=== PATIENT | male | born 1940 | race Caucasian/White ===

== ENCOUNTER 2018-06-04 09:22 | Emergency (ER) | payer MEDICARE ==
[~2018-06-04 09:22] MED LIST: Gadobenate Dimeglumine 529 MG/1 ML (20ML VIAL) ONE
[2018-06-04] MEDS ORDERED: Ketorolac Tromethamine 30 MG/ML VIAL ONE (09:59)
[2018-06-04 10:08] LABS: #Basophils 0.1 thou/uL (0.0-0.2); #Eosinphils 0.1 thou/uL (0.0-0.7); #Lymphocytes 1.1 thou/uL (1.20-3.40); #Monocytes 0.7 thou/uL (0.11-0.59); %Eosinophils 1.6 % (0.0-10.0); %Lymphocytes 13.3 % (21.0-51.0); %Monocytes 8.4 % (0.0-10.0); %Neutrophils 75.7 % (42.0-75.0); Hemoglobin 14.8 g/dL (14.0-18.0); Mean Corpuscular Volume 88.3 fL (78.0-98.0); Mean Platelet Volume 6.3 fL (7.4-10.4); Platelet Count 276 thou/uL (130-400); RBC Distribution Width 12.2 % (11.5-14.5); Red Blood Cell (RBC) Count 4.94 mill/uL (4.70-6.10); White Blood Cell (WBC) Count 7.9 thou/uL (4.8-10.8)
[2018-06-04 10:20] LABS: ALT (SGPT) 16 U/L (8-55); AST (SGOT) 27 U/L (5-34); Albumin 4.5 g/dL (3.4-4.8); Alkaline Phosphatase 64 U/L (40-150); Anion Gap 18 mmol/L (10-20); BUN (Urea Nitrogen) 29 mg/dL (8.4-25.7); Bilirubin, Total 1.3 mg/dL (0.2-1.2); CRP (Inflammatory) Less than 0.50 mg/dL (= or < 0.5); Calc. Creatinine Clearance 0 mL/min (70-130); Carbon Dioxide 25 mmol/L (23-31); Chloride 96 mmol/L (98-107); Estimated GFR-MDRD 51; Glucose 282 mg/dL (83-110); Potassium 4.6 mmol/L (3.5-5.1); Protein, Total 7.5 g/dL (5.8-8.1); Sodium 134 mmol/L (136-145)
--- NOTE | 2018-06-04 14:06 | MRI ---
MRI OF THE LUMBAR SPINE WITHOUT AND WITH CONTRAST: COMPARISON: 11/22/14. HISTORY: Low back pain with left-sided sciatica. History of fall 2 weeks ago. TECHNIQUE: Multiplanar, multisequence MR images were obtained of the lumbar spine without and with IV contrast. FINDINGS: There is decreased height of the L5 vertebral body with approximately 30% height loss. The L5-S1 int ervertebral disk is significantly decreased in height. Postsurgical changes are seen in the lower josiah mbosacral spine. The patient is status post fusion of L4 through S1 with bilateral pedicle screws. Laminectomies have been performed at L4 and L5. The conus medullaris terminates normally at L1. The prevertebral soft tissues are unremarkable. No abnormal enhancement is seen on this examination. A small amount of edema is seen in the paraspinal soft tissues, posterior to L5 and S1. T12-L1: Unremarkable. L1-2: A small disk-osteophyte complex is seen. Mild bilateral posterior facet arthrosis. Mild cent ral canal stenosis. Mild [id number] neural foraminal stenosis. L2-3: A small disk-osteophyte complex is seen. Moderate bilateral posterior facet arthrosis. Mild central canal stenosis. Mild bilateral neural foraminal stenosis. L3-4: A moderate disk-osteophyte complex is seen. Severe bilateral posterior facet arthrosis. Mode rate central canal stenosis. Moderate right and severe left neural foraminal stenosis. L4-5: No significant bulge or protrusion. Moderate bilateral posterior facet arthrosis. No central canal stenosis. Mild bilateral neural foraminal stenosis. L5-S1: A large disk-osteophyte complex is seen. Evaluation is limited secondary to artifact from th e patient's pedicle screws. Moderate bilateral posterior facet arthrosis. No central canal stenosis . The right neural foramen is difficult to visualize. Moderate to severe left neural foraminal sten osis. IMPRESSION: Postsurgical changes and degenerative changes of the lumbar spine as above. POS: [facility]
== END 2018-06-04 12:43 | disposition home or self-care (01) ==
LOC: SCSER 09:22
DX: M54.16 Radiculopathy, lumbar region (principal); M10.9 Gout, unspecified; E11.9 Type 2 diabetes mellitus without complications; I10 Essential (primary) hypertension; Z79.899 Other long term (current) drug therapy; Z79.84 Long term (current) use of oral hypoglycemic drugs; Z79.82 Long term (current) use of aspirin
CPT/HCPCS: 36415; 72158; 80053; 85025; 85652; 86140; 96372; A9579; J1885

== ENCOUNTER 2018-06-21 13:29 | Outpatient (CLI) | payer MEDICARE ==
--- NOTE | 2018-06-21 15:38 | RAD ---
LUMBAR SPINE THREE VIEWS: 06/21/18 HISTORY: 77-year-old male with history of lumbar radiculopathy. COMPARISON: 03/05/15. Extensive lumbar spondylosis changes are noted. Pedicle screw changes are noted at L4, L5 and S1. Exa m includes upright flexion and extension views. No abnormal translation between flexion and extension . IMPRESSION: Extensive spondylosis. Pedicle screw placement changes at L 4, L5, and S1. No evidence for abnormal t ranslation between flexion and extension. POS: [facility]
--- NOTE | 2018-06-21 16:00 | CT ---
CT LUMBAR SPINE WITHOUT CONTRAST: Date: 06/21/18 Multiple axial tomograms obtained through the lumbar spine without IV enhancement. HISTORY: Lumbar radiculopathy. Correlation made to MRI lumbar spine dated 11/22/14. That exam revealed L5 fracture with abnormal sig nal in the L5 vertebra, as well as the L5-S1 disc and superior portion of S1 suggesting inflammation. FINDINGS: Today's CT shows pedicle screws in place at L4, L5, and S1. Loss of height of the L5 vertebra is note d with loss of disc space at L5-S1. There are large anterior and lateral osteophytes throughout the l umbar spine. Posterior alignment is preserved. At L1-2, disc bulge abuts the thecal sac. Facet hypertrophy is prominent. Mild central canal stenosis . At L2-3, diffuse disc bulge combined with prominent facet hypertrophy results in mild to moderate janet tral canal stenosis. At L3-4, broad based disc bulge combined with very pronounced facet and ligamentous hypertrophy resul ts in moderate to severe central canal stenosis. There is disc density projecting to the left encroac dionicio in the left foramina and laterally on the left at this level suggesting asymmetric disc protrusi on. Pedicle screws at L4 appear adequately positioned. At L4-5, posterior laminectomy change. Prominent facet hypertrophy. No significant central canal sten osis. Bilateral foraminal stenosis secondary to hypertrophic change. Pedicle screws at L5 are adequately positioned. Posterior laminectomy change. Osteophytes project posteriorly at the L5-S1 disc. There is loss of disc space at L5-S1. The posterio r osteophytes impinge on the cord anteriorly and to the left of midline. This large osteophyte comple x measures approximately 8 mm AP dimension in the axial plane and probably displaces the traversing l eft S1 nerve root. Bilateral foraminal stenosis at this level, more severe on the right due to the hy pertrophic change. Pedicle screws at S1 appear adequately positioned. IMPRESSION: 1. There are postoperative and degenerative changes of the lumbar spine. Large osteophyte projecting posteriorly at the L5-S1 disc level impinges on the thecal sac. Bilateral foraminal stenosis at this level, more severe on the right, is noted. 2. Disc bulge and central canal stenosis at other lumbar levels as described above. POS: [facility]
== END 2018-06-21 13:30 | disposition home or self-care (01) ==
LOC: CT 13:29
PROVIDERS: ATTEND Surgery
DX: M47.26 Other spondylosis with radiculopathy, lumbar region (principal); M48.061 Spinal stenosis, lumbar region without neurogenic claudication; M99.83 Other biomechanical lesions of lumbar region; M51.16 Intervertebral disc disorders with radiculopathy, lumbar region; Z98.890 Other specified postprocedural states
CPT/HCPCS: 72100; 72131

== ENCOUNTER 2024-02-21 15:26 | Inpatient (IN) | payer MEDICARE ==
[2024-02-21] MEDS ORDERED: Pantoprazole 40 MG VIAL ONE (16:02)
[2024-02-21 16:50] LABS: #Basophils 0.05 10x3/uL (0.0-0.2); %Basophils 0.7 % (0.0-1.0); %Eosinophils 2.8 % (0.0-10.0); %Lymphocytes 17.4 % (21.0-51.0); %Monocytes 12.4 % (0.0-10.0); %Neutrophils 66.4 % (42.0-75.0); Hematocrit 26.2 % (42.0-52.0); Hemoglobin 7.9 g/dL (14.0-18.0); Mean Corpuscular HGB CONC 30.2 g/dL (32.0-36.0); Mean Corpuscular Hemoglobin 31.6 pg (27.0-31.0); Mean Corpuscular Volume 104.8 fL (78.0-98.0); Platelet Count 241 10x3/uL (130-400); RBC Distribution Width 16.3 % (11.5-14.5)
[2024-02-21 17:13] LABS: Troponin I 0.021 ng/mL (< 0.028)
[2024-02-21 17:16] LABS: ALT (SGPT) 10 U/L (8-55); AST (SGOT) 13 U/L (5-34); Albumin 2.8 g/dL (3.4-4.8); Alkaline Phosphatase 159 U/L (40-110); Anion Gap 13 mmol/L (10-20); BUN (Urea Nitrogen) 51 mg/dL (8.4-25.7); Bilirubin, Total 0.4 mg/dL (0.2-1.2); Calc. Creatinine Clearance 0 mL/min (70-130); Calcium 8.8 mg/dL (7.8-10.44); Carbon Dioxide 24 mmol/L (23-31); Chloride 107 mmol/L (98-107); Estimated GFR 83; Globulin 3.6 g/dL (2.4-3.5); Glucose 113 mg/dL (83-110); Lipase 28 U/L (8-78); Protein, Total 6.4 g/dL (5.8-8.1); Sodium 140 mmol/L (136-145)
[2024-02-21 17:52] LABS: Bacteria/HPF 2+ HPF (None Seen); Bilirubin Negative (Negative); Blood, Urine Trace (Negative); CAUTI Indications for Culture Pelvic or flank pain; Clarity Turbid (Clear); Glucose, Urine (Dipstick) Normal (Negative); Ketone, Urine Negative (Negative); Leukocyte 500 Leu/uL (Negative); Nitrite Negative (Negative); Protein, Urine (Dipstick) 30 mg/dL (Neg-Trace); Specific Gravity, Urine 1.018 (1.002-1.036); Squamous Epithelial 0-3 HPF (0-3); Urobilinogen Normal mg/dL (Less than 2); WBC/HPF Greater than 50 HPF (0-3); pH, Urine 5.5 (5.0-9.0)
[2024-02-21 18:06] LABS: Urine Culture Reflex Yes Yes
[2024-02-21] MEDS ORDERED: cefTRIAXone (ROCEPHIN) 1 GM VIAL ONE (18:22)
[2024-02-21] MEDS ORDERED: Sodium Chloride 0.9% 100 ML ONE (18:22)
[2024-02-21] MEDS ORDERED: Acetaminophen 325 MG TAB PO PRN (18:57)
[2024-02-21] MEDS ORDERED: Ondansetron ODT 4 MG TAB PO PRN (18:57)
[2024-02-21] MEDS ORDERED: Dextrose 5% in Water 1,000 ML IV PRN (18:57)
[2024-02-21] MEDS ORDERED: Dextrose 50% Abboject 50 ML SYRINGE SLOW IVP PRN (18:57)
[2024-02-21] MEDS ORDERED: HumaLOG 300 UNITS/3 ML VIAL SC PRN (18:57)
[2024-02-21] MEDS ORDERED: Ondansetron PF 4 MG/2 ML Vial IVP PRN (18:57)
[2024-02-21] MEDS ORDERED: Glucagon 1 MG/ML KIT IM PRN (18:57)
[2024-02-21 18:58] LABS: Iron 25 ug/dL (65-175); Iron Binding Capacity, Total 330 mcg/dL (261-462); Magnesium 1.7 mg/dL (1.6-2.6)
[2024-02-21 19:01] LABS: INR-International Normal Ratio 1.1; Prothrombin Time 13.9 sec (12.0-14.7)
[2024-02-21 19:02] LABS: PTT 31.1 sec (22.9-36.1)
[2024-02-21 23:33] VITALS: BMI 27.3
[2024-02-22] MEDS: Magnesium 2 GM/50 ML(in water) 2 GM in Premix 1 BAG IVPB SCH ×2 (00:17→01:28)
[2024-02-22] MEDS: Pantoprazole 40 MG VIAL IVP SCH (00:18)
[2024-02-22 04:40] LABS: #Basophils 0.06 10x3/uL (0.0-0.2); %Basophils 1.1 % (0.0-1.0); %Eosinophils 4.6 % (0.0-10.0); %Lymphocytes 16.1 % (21.0-51.0); %Neutrophils 63.8 % (42.0-75.0); Hemoglobin 8.6 g/dL (14.0-18.0); Mean Corpuscular HGB CONC 30.7 g/dL (32.0-36.0); Mean Corpuscular Hemoglobin 31.2 pg (27.0-31.0); Mean Corpuscular Volume 101.4 fL (78.0-98.0); Mean Platelet Volume 9.2 fL (7.4-10.4); Platelet Count 236 10x3/uL (130-400); RBC Distribution Width 16.6 % (11.5-14.5); Red Blood Cell (RBC) Count 2.76 mill/uL (4.70-6.10)
[2024-02-22 05:02] LABS: Anion Gap 12 mmol/L (10-20); BUN (Urea Nitrogen) 42 mg/dL (8.4-25.7); Calc. Creatinine Clearance 82 mL/min (70-130); Calcium 8.7 mg/dL (7.8-10.44); Carbon Dioxide 25 mmol/L (23-31); Chloride 106 mmol/L (98-107); Estimated GFR 87; Glucose 97 mg/dL (83-110); Potassium 3.4 mmol/L (3.5-5.1); Sodium 140 mmol/L (136-145)
[2024-02-22] MEDS ORDERED: Electrolyte Replacement Protocol 1 EACH FS SCH (06:00)
[2024-02-22] MEDS: Potassium Chloride 20 MEQ in Premix 1 BAG IVPB SCH (06:41)
[2024-02-22 06:57] LABS: Magnesium 2.2 mg/dL (1.6-2.6)
[2024-02-22] MEDS: Allopurinol 300 MG TAB PO SCH (09:15)
[2024-02-22] MEDS: Losartan 25 MG TAB PO SCH (09:16)
[2024-02-22] MEDS: Amlodipine 5 MG TAB PO SCH (09:16)
[2024-02-22 14:46] LABS: Potassium 4.2 mmol/L (3.5-5.1)
[2024-02-22] MEDS: HumaLOG 300 UNITS/3 ML VIAL SC PRN (18:50)
[2024-02-22] MEDS: cefTRIAXone\\ROCEPHIN 1 GM in Sodium Chloride 0.9% 100 ML IVPB SCH (18:54)
[2024-02-22] MEDS: Melatonin 3 MG TAB PO SCH (20:28)
[2024-02-22] MEDS: hydrALAZINE 20 MG/ML VIAL SLOW IVP PRN (20:28)
[2024-02-23 05:00] LABS: #Basophils 0.07 10x3/uL (0.0-0.2); %Eosinophils 4.2 % (0.0-10.0); %Lymphocytes 10.1 % (21.0-51.0); %Neutrophils 72.6 % (42.0-75.0); Hematocrit 29.4 % (42.0-52.0); Hemoglobin 9.1 g/dL (14.0-18.0); Mean Corpuscular Hemoglobin 30.5 pg (27.0-31.0); Mean Corpuscular Volume 98.7 fL (78.0-98.0); Mean Platelet Volume 9.5 fL (7.4-10.4); Platelet Count 259 10x3/uL (130-400); RBC Distribution Width 16.4 % (11.5-14.5); Red Blood Cell (RBC) Count 2.98 mill/uL (4.70-6.10)
[2024-02-23 05:22] LABS: Anion Gap 17 mmol/L (10-20); BUN (Urea Nitrogen) 30 mg/dL (8.4-25.7); Calc. Creatinine Clearance 78 mL/min (70-130); Carbon Dioxide 22 mmol/L (23-31); Chloride 112 mmol/L (98-107); Estimated GFR 86; Glucose 90 mg/dL (83-110); Potassium 3.9 mmol/L (3.5-5.1); Sodium 147 mmol/L (136-145)
[2024-02-23] MEDS ORDERED: PROPOFOL 20 ML ONE (14:28)
[2024-02-23] MEDS ORDERED: Lidocaine 1% PF 5 ML VIAL ONE (14:28)
[2024-02-23] MEDS: GoLYTELY 4,000 ml Bottle PO SCH (18:38)
[2024-02-24] MEDS: Furosemide 20 MG (2 mL) VIAL SLOW IVP SCH (03:22)
[2024-02-24 04:27] LABS: #Basophils 0.05 10x3/uL (0.0-0.2); %Basophils 0.4 % (0.0-1.0); %Eosinophils 0.3 % (0.0-10.0); %Lymphocytes 4.1 % (21.0-51.0); %Monocytes 7.5 % (0.0-10.0); %Neutrophils 87.3 % (42.0-75.0); Hematocrit 30.4 % (42.0-52.0); Hemoglobin 9.6 g/dL (14.0-18.0); Mean Corpuscular HGB CONC 31.6 g/dL (32.0-36.0); Mean Corpuscular Hemoglobin 31.9 pg (27.0-31.0); Mean Platelet Volume 9.1 fL (7.4-10.4); Platelet Count 256 10x3/uL (130-400); RBC Distribution Width 15.9 % (11.5-14.5); Red Blood Cell (RBC) Count 3.01 mill/uL (4.70-6.10)
[2024-02-24 05:15] LABS: Anion Gap 14 mmol/L (10-20); BUN (Urea Nitrogen) 20 mg/dL (8.4-25.7); Calc. Creatinine Clearance 92 mL/min (70-130); Calcium 8.9 mg/dL (7.8-10.44); Carbon Dioxide 25 mmol/L (23-31); Chloride 108 mmol/L (98-107); Estimated GFR 90; Glucose 105 mg/dL (83-110); Potassium 3.7 mmol/L (3.5-5.1); Sodium 143 mmol/L (136-145)
[2024-02-24] MEDS ORDERED: PROPOFOL 0 ML ONE ×2 (07:24→07:31)
[2024-02-24] MEDS ORDERED: CEFEPIME IVPB PRN (10:29)
[2024-02-24] MEDS: Vancomycin 1 GM in Premix 1 BAG IVPB SCH (12:44)
[2024-02-24] MEDS: Vancomycin (BATCH) 2 GM in Premix 1 BAG IVPB SCH (13:36)
[2024-02-24] MEDS: Cefepime 2 GM in Sodium Chloride 0.9% 100 ML IVPB SCH (13:36)
[2024-02-24] MEDS ORDERED: Vancomycin (BATCH) 1.25 GM in Premix 1 BAG IVPB SCH (21:00)
[2024-02-25] MEDS: Vancomycin (BATCH) 1.25 GM in Premix 1 BAG IVPB SCH (00:33)
[2024-02-25 05:34] LABS: Anion Gap 17 mmol/L (10-20); BUN (Urea Nitrogen) 17 mg/dL (8.4-25.7); Calc. Creatinine Clearance 82 mL/min (70-130); Calcium 8.5 mg/dL (7.8-10.44); Carbon Dioxide 23 mmol/L (23-31); Chloride 108 mmol/L (98-107); Estimated GFR 87; Glucose 90 mg/dL (83-110); Potassium 3.7 mmol/L (3.5-5.1); Sodium 144 mmol/L (136-145)
[2024-02-25 05:37] LABS: Vancomycin, Random 28.5 ug/mL (See Comment)
[2024-02-25 05:55] LABS: #Basophils 0.06 10x3/uL (0.0-0.2); %Basophils 0.8 % (0.0-1.0); %Eosinophils 3.7 % (0.0-10.0); %Lymphocytes 10.3 % (21.0-51.0); %Monocytes 12.8 % (0.0-10.0); %Neutrophils 72.1 % (42.0-75.0); Hematocrit 28.2 % (42.0-52.0); Hemoglobin 8.6 g/dL (14.0-18.0); Mean Corpuscular HGB CONC 30.5 g/dL (32.0-36.0); Mean Corpuscular Hemoglobin 31.5 pg (27.0-31.0); Mean Corpuscular Volume 103.3 fL (78.0-98.0); Mean Platelet Volume 9.4 fL (7.4-10.4); Platelet Count 204 10x3/uL (130-400); RBC Distribution Width 15.8 % (11.5-14.5); Red Blood Cell (RBC) Count 2.73 mill/uL (4.70-6.10)
[2024-02-25] MEDS: Furosemide 40 MG (4 mL) VIAL SLOW IVP SCH (17:29)
[2024-02-25] MEDS: Vancomycin HCl 750 MG in Sodium Chloride 0.9% 250 ML 250 ML IVPB SCH (22:10)
[2024-02-26 04:50] LABS: #Basophils 0.05 10x3/uL (0.0-0.2); %Basophils 0.8 % (0.0-1.0); %Eosinophils 6.3 % (0.0-10.0); %Monocytes 12.9 % (0.0-10.0); %Neutrophils 65.7 % (42.0-75.0); Hemoglobin 8.1 g/dL (14.0-18.0); Mean Corpuscular Hemoglobin 31.2 pg (27.0-31.0); Mean Corpuscular Volume 103.8 fL (78.0-98.0); Mean Platelet Volume 9.7 fL (7.4-10.4); Platelet Count 203 10x3/uL (130-400); RBC Distribution Width 15.2 % (11.5-14.5)
[2024-02-26 05:12] LABS: Vancomycin, Random 29.3 ug/mL (See Comment)
[2024-02-26 05:16] LABS: Anion Gap 13 mmol/L (10-20); BUN (Urea Nitrogen) 18 mg/dL (8.4-25.7); Calc. Creatinine Clearance 76 mL/min (70-130); Calcium 8.7 mg/dL (7.8-10.44); Carbon Dioxide 27 mmol/L (23-31); Chloride 106 mmol/L (98-107); Estimated GFR 85; Glucose 98 mg/dL (83-110); Potassium 3.6 mmol/L (3.5-5.1); Sodium 142 mmol/L (136-145)
[2024-02-26] MEDS: Furosemide 40 MG (4 mL) VIAL SLOW IVP SCH (11:10)
[2024-02-26] MEDS: GoLYTELY 4,000 ml Bottle PO SCH (16:15)
[2024-02-26] MEDS: Cefepime 1 GM in Sodium Chloride 0.9% 100 ML IVPB SCH (23:24)
[2024-02-27 08:40] LABS: #Basophils 0.05 10x3/uL (0.0-0.2); %Basophils 0.8 % (0.0-1.0); %Eosinophils 6.3 % (0.0-10.0); %Lymphocytes 12.5 % (21.0-51.0); %Monocytes 11.5 % (0.0-10.0); %Neutrophils 68.7 % (42.0-75.0); Hematocrit 29.1 % (42.0-52.0); Hemoglobin 8.9 g/dL (14.0-18.0); Mean Corpuscular HGB CONC 30.6 g/dL (32.0-36.0); Mean Corpuscular Hemoglobin 30.5 pg (27.0-31.0); Mean Corpuscular Volume 99.7 fL (78.0-98.0); Platelet Count 197 10x3/uL (130-400); RBC Distribution Width 14.6 % (11.5-14.5); Red Blood Cell (RBC) Count 2.92 mill/uL (4.70-6.10)
[2024-02-27] MEDS ORDERED: PROPOFOL 40 ML ONE (09:22)
[2024-02-27 09:28] LABS: Anion Gap 16 mmol/L (10-20); BUN (Urea Nitrogen) 18 mg/dL (8.4-25.7); Calc. Creatinine Clearance 78 mL/min (70-130); Calcium 8.7 mg/dL (7.8-10.44); Carbon Dioxide 23 mmol/L (23-31); Chloride 105 mmol/L (98-107); Estimated GFR 86; Glucose 94 mg/dL (83-110); Potassium 3.7 mmol/L (3.5-5.1); Sodium 140 mmol/L (136-145)
[2024-02-27] MEDS ORDERED: Etomidate 40 MG (20 mL) VIAL ONE (09:42)
[2024-02-27] MEDS ORDERED: Ondansetron HCl/PF 4 MG/2 ML Vial IVP PRN (10:13)
[2024-02-27] MEDS ORDERED: Iopamidol 370 76% 100 ML VIAL ONE (10:15)
[2024-02-28 04:45] LABS: #Basophils 0.05 10x3/uL (0.0-0.2); %Basophils 0.8 % (0.0-1.0); %Eosinophils 5.3 % (0.0-10.0); %Lymphocytes 11.9 % (21.0-51.0); %Monocytes 10.7 % (0.0-10.0); Hematocrit 30.7 % (42.0-52.0); Hemoglobin 9.3 g/dL (14.0-18.0); Mean Corpuscular HGB CONC 30.3 g/dL (32.0-36.0); Mean Corpuscular Hemoglobin 30.1 pg (27.0-31.0); Mean Corpuscular Volume 99.4 fL (78.0-98.0); Mean Platelet Volume 9.3 fL (7.4-10.4); Platelet Count 209 10x3/uL (130-400); RBC Distribution Width 14.6 % (11.5-14.5); Red Blood Cell (RBC) Count 3.09 mill/uL (4.70-6.10)
[2024-02-28 05:25] LABS: Vancomycin, Random 25.2 ug/mL (See Comment)
[2024-02-28 05:26] LABS: Anion Gap 10 mmol/L (10-20); BUN (Urea Nitrogen) 15 mg/dL (8.4-25.7); Calc. Creatinine Clearance 77 mL/min (70-130); Calcium 8.7 mg/dL (7.8-10.44); Carbon Dioxide 30 mmol/L (23-31); Chloride 102 mmol/L (98-107); Estimated GFR 85; Glucose 93 mg/dL (83-110); Potassium 3.4 mmol/L (3.5-5.1); Sodium 139 mmol/L (136-145)
[2024-02-28] MEDS: Potassium Chloride 20 MEQ TAB PO SCH (08:44)
[2024-02-28] MEDS: Empagliflozin 10 MG TAB PO SCH (08:44)
[2024-02-28 11:16] VITALS: BMI 27.3
[2024-02-29 04:27] LABS: #Basophils 0.03 10x3/uL (0.0-0.2); %Basophils 0.5 % (0.0-1.0); %Eosinophils 4.2 % (0.0-10.0); %Lymphocytes 15.6 % (21.0-51.0); %Monocytes 12.8 % (0.0-10.0); %Neutrophils 66.7 % (42.0-75.0); Hematocrit 29.1 % (42.0-52.0); Hemoglobin 8.6 g/dL (14.0-18.0); Mean Corpuscular HGB CONC 29.6 g/dL (32.0-36.0); Mean Corpuscular Hemoglobin 30.6 pg (27.0-31.0); Mean Corpuscular Volume 103.6 fL (78.0-98.0); Mean Platelet Volume 9.5 fL (7.4-10.4); Platelet Count 201 10x3/uL (130-400); RBC Distribution Width 14.5 % (11.5-14.5); Red Blood Cell (RBC) Count 2.81 mill/uL (4.70-6.10)
[2024-02-29 04:48] LABS: Anion Gap 12 mmol/L (10-20); BUN (Urea Nitrogen) 17 mg/dL (8.4-25.7); Calc. Creatinine Clearance 57 mL/min (70-130); Calcium 8.6 mg/dL (7.8-10.44); Carbon Dioxide 31 mmol/L (23-31); Chloride 104 mmol/L (98-107); Estimated GFR 64; Glucose 118 mg/dL (83-110); Potassium 4.1 mmol/L (3.5-5.1); Sodium 143 mmol/L (136-145)
[2024-03-01 05:58] LABS: Anion Gap 13 mmol/L (10-20); BUN (Urea Nitrogen) 21 mg/dL (8.4-25.7); Calc. Creatinine Clearance 46 mL/min (70-130); Calcium 8.9 mg/dL (7.8-10.44); Carbon Dioxide 27 mmol/L (23-31); Chloride 103 mmol/L (98-107); Estimated GFR 49; Glucose 97 mg/dL (83-110); Potassium 4.4 mmol/L (3.5-5.1); Sodium 139 mmol/L (136-145)
[2024-03-01 06:29] LABS: #Basophils 0.04 10x3/uL (0.0-0.2); %Basophils 0.6 % (0.0-1.0); %Eosinophils 4.8 % (0.0-10.0); %Monocytes 13.6 % (0.0-10.0); %Neutrophils 64.5 % (42.0-75.0); Hematocrit 30.1 % (42.0-52.0); Hemoglobin 8.9 g/dL (14.0-18.0); Mean Corpuscular HGB CONC 29.6 g/dL (32.0-36.0); Mean Corpuscular Hemoglobin 30.8 pg (27.0-31.0); Mean Corpuscular Volume 104.2 fL (78.0-98.0); Mean Platelet Volume 9.5 fL (7.4-10.4); Platelet Count 193 10x3/uL (130-400); RBC Distribution Width 14.5 % (11.5-14.5); Red Blood Cell (RBC) Count 2.89 mill/uL (4.70-6.10)
[2024-03-01] MEDS ORDERED: Amlodipine 5 MG TAB PO SCH (06:57)
[2024-03-01] MEDS: Amlodipine 10 MG TAB PO SCH (09:40)
[2024-03-01] MEDS: Losartan 25 MG TAB PO SCH (09:41)
[2024-03-01] MEDS: Docusate 100 MG CAP PO SCH (14:40)
[2024-03-01] MEDS: Polyethylene Glycol 3350 17 GM Packet PO SCH (14:40)
[2024-03-01] MEDS: Bisacodyl 10 MG SUPP PR SCH (14:42)
[2024-03-02 05:23] LABS: Anion Gap 12 mmol/L (10-20); BUN (Urea Nitrogen) 24 mg/dL (8.4-25.7); Calc. Creatinine Clearance 58 mL/min (70-130); Calcium 9.2 mg/dL (7.8-10.44); Carbon Dioxide 31 mmol/L (23-31); Chloride 101 mmol/L (98-107); Estimated GFR 66; Glucose 115 mg/dL (83-110); Potassium 4.2 mmol/L (3.5-5.1); Sodium 140 mmol/L (136-145)
[2024-03-02] MEDS: Losartan 25 MG TAB PO SCH (10:02)
[2024-03-03 04:19] LABS: Hematocrit 28.4 % (42.0-52.0); Hemoglobin 8.6 g/dL (14.0-18.0); Mean Corpuscular HGB CONC 30.3 g/dL (32.0-36.0); Mean Corpuscular Hemoglobin 30.3 pg (27.0-31.0); Mean Platelet Volume 9.6 fL (7.4-10.4); Platelet Count 200 10x3/uL (130-400); RBC Distribution Width 14.2 % (11.5-14.5); Red Blood Cell (RBC) Count 2.84 mill/uL (4.70-6.10)
[2024-03-03 04:55] LABS: Anion Gap 13 mmol/L (10-20); BUN (Urea Nitrogen) 27 mg/dL (8.4-25.7); Calc. Creatinine Clearance 55 mL/min (70-130); Calcium 9.1 mg/dL (7.8-10.44); Carbon Dioxide 30 mmol/L (23-31); Chloride 101 mmol/L (98-107); Estimated GFR 61; Glucose 110 mg/dL (83-110); Sodium 140 mmol/L (136-145)
[2024-03-04 06:27] LABS: #Basophils 0.04 10x3/uL (0.0-0.2); %Basophils 0.6 % (0.0-1.0); %Eosinophils 4.3 % (0.0-10.0); %Lymphocytes 13.8 % (21.0-51.0); %Monocytes 10.7 % (0.0-10.0); %Neutrophils 70.3 % (42.0-75.0); Hematocrit 29.4 % (42.0-52.0); Hemoglobin 8.8 g/dL (14.0-18.0); Mean Corpuscular HGB CONC 29.9 g/dL (32.0-36.0); Mean Corpuscular Hemoglobin 30.3 pg (27.0-31.0); Mean Corpuscular Volume 101.4 fL (78.0-98.0); Mean Platelet Volume 9.9 fL (7.4-10.4); Platelet Count 206 10x3/uL (130-400); RBC Distribution Width 14.3 % (11.5-14.5)
[2024-03-04 06:37] LABS: Anion Gap 14 mmol/L (10-20); BUN (Urea Nitrogen) 29 mg/dL (8.4-25.7); Calc. Creatinine Clearance 70 mL/min (70-130); Calcium 9.3 mg/dL (7.8-10.44); Carbon Dioxide 26 mmol/L (23-31); Chloride 106 mmol/L (98-107); Estimated GFR 82; Glucose 96 mg/dL (83-110); Potassium 4.2 mmol/L (3.5-5.1); Sodium 142 mmol/L (136-145)
[2024-03-04] MEDS: metFORMIN 500 MG TAB PO SCH (09:00)
[2024-03-04] MEDS: hydrALAZINE 25 MG TAB PO SCH (09:01)
[2024-03-04] MEDS: Multivit, Therapeutic 1 TAB PO SCH (09:01)
[2024-03-04] MEDS: Furosemide 40 MG TAB PO SCH (13:42)
[2024-03-05] MEDS: hydrALAZINE 25 MG TAB PO SCH (08:59)
[2024-03-05] MEDS: Furosemide 40 MG TAB PO SCH (08:59)
[2024-03-05] MEDS: NIFEdipine XL 60 MG ER.TAB PO SCH (08:59)
[2024-03-06 04:44] LABS: Anion Gap 17 mmol/L (10-20); BUN (Urea Nitrogen) 36 mg/dL (8.4-25.7); Calc. Creatinine Clearance 58 mL/min (70-130); Calcium 9.6 mg/dL (7.8-10.44); Carbon Dioxide 26 mmol/L (23-31); Chloride 103 mmol/L (98-107); Estimated GFR 65; Glucose 110 mg/dL (83-110); Magnesium 1.8 mg/dL (1.6-2.6); Potassium 3.8 mmol/L (3.5-5.1); Sodium 142 mmol/L (136-145)
[2024-03-06 05:02] LABS: #Basophils 0.03 10x3/uL (0.0-0.2); %Basophils 0.4 % (0.0-1.0); %Eosinophils 2.8 % (0.0-10.0); %Lymphocytes 14.7 % (21.0-51.0); %Monocytes 12.3 % (0.0-10.0); %Neutrophils 69.4 % (42.0-75.0); Hematocrit 29.2 % (42.0-52.0); Hemoglobin 9.1 g/dL (14.0-18.0); Mean Corpuscular HGB CONC 31.2 g/dL (32.0-36.0); Mean Corpuscular Hemoglobin 30.4 pg (27.0-31.0); Mean Corpuscular Volume 97.7 fL (78.0-98.0); Mean Platelet Volume 9.2 fL (7.4-10.4); Platelet Count 204 10x3/uL (130-400); RBC Distribution Width 14.6 % (11.5-14.5); Red Blood Cell (RBC) Count 2.99 mill/uL (4.70-6.10)
[2024-03-06 08:17] VITALS: BP 136/64; TEMP 97.2
[2024-03-06] MEDS ORDERED: Fluticasone Propionate Nasal Spray 16 gm Bottle NASAL SCH (14:00)
== END 2024-03-06 09:45 | DRG 374 ==
LOC: ERS 15:26 → ERHOLD 18:01 → 2NO 22:59
PROVIDERS: ADMIT Internal Medicine; ATTEND Internal Medicine
PROC: 30233N1 Transfusion of Nonautologous Red Blood Cells into Peripheral Vein, Percutaneous Approach (ICD-10-PCS; 2024-02-21)
PROC: 0DJ08ZZ Inspection of Upper Intestinal Tract, Via Natural or Artificial Opening Endoscopic (ICD-10-PCS; principal; 2024-02-23)
PROC: 0DBP8ZX Excision of Rectum, Via Natural or Artificial Opening Endoscopic, Diagnostic (ICD-10-PCS; 2024-02-27)
DX: C20 Malignant neoplasm of rectum (principal); I50.33 Acute on chronic diastolic (congestive) heart failure; K29.81 Duodenitis with bleeding; J18.9 Pneumonia, unspecified organism; N39.0 Urinary tract infection, site not specified; Z66 Do not resuscitate; Z51.5 Encounter for palliative care; T83.511A Infection and inflammatory reaction due to indwelling urethral catheter, initial encounter; D62 Acute posthemorrhagic anemia; I48.92 Unspecified atrial flutter; I48.20 Chronic atrial fibrillation, unspecified; N17.9 Acute kidney failure, unspecified; I11.0 Hypertensive heart disease with heart failure; B96.20 Unspecified Escherichia coli [E. coli] as the cause of diseases classified elsewhere; E11.9 Type 2 diabetes mellitus without complications; D50.9 Iron deficiency anemia, unspecified; G89.29 Other chronic pain; M10.9 Gout, unspecified; E78.5 Hyperlipidemia, unspecified; G47.33 Obstructive sleep apnea (adult) (pediatric); K64.8 Other hemorrhoids; E87.6 Hypokalemia; R53.1 Weakness; R33.9 Retention of urine, unspecified; K62.89 Other specified diseases of anus and rectum; I44.0 Atrioventricular block, first degree; I27.20 Pulmonary hypertension, unspecified; Z79.899 Other long term (current) drug therapy; Z98.890 Other specified postprocedural states
CPT/HCPCS: 36415; 36416; 36430; 71045; 71260; 74018; 74177; 80048; 80202; 81001; 82274; 82378; 82607; 82728; 83540; 83550; 83690; 83735; 83880; 84484; 85025; 85027; 85046; 85610; 85730; 86850; 86900; 86901; 87070; 87077; 87081; 87086; 87186; 88305; 93005; 93010; 93306; 93970; 96365; 96375; C9113; J0360; J0692; J0696; J1815; J1940; J2704; J3370; J3475; J3480; J3490; J7050; P9016; Q9967